=== PATIENT | female | born 1950 | race Asian ===

== ENCOUNTER 2017-01-25 14:35 | Inpatient (IN) | payer OTHER ==
[~2017-01-25] VITALS: Ht 162.6 cm; Wt 69.4 kg
[~2017-01-25 14:35] MED LIST: COZAAR100 MG PO; WELCHOL625 MG PO
--- NOTE | 2017-01-25 14:57 | NUR ---
PT BROUGHT TO ER VIA [facility]. PT PRESENTS TO ER WITH CHEST PAIN THAT BEGAN THIS AFTERNOON AFTER DOING HOME ACTIVITIES. PT STATES PT HAS BEEN FEELING "TIRED" LATELY. PT IN BED IN SEMI-FOWLERS. PT AAOX4, BREATHING EVEN AND UNLABORED. NO DISTRESS NOTED AT THIS TIME. AT BEDSIDE. CALL LIGHT PLACED WITHIN REACH. COMFORT MEASURES IN PLACE. PT WAITING TO BE SEEN BY ER MD.
--- NOTE | 2017-01-25 15:56 | NUR ---
DR SCHAFFER AT BEDSIDE FOR MSE.
--- NOTE | 2017-01-25 15:59 | NUR ---
XRAY AT BEDSIDE.
[2017-01-25 16:29] LABS: CALCIUM 8.8 mg/dL (8.5-10.1); CARBON DIOXIDE 30.4 mmol/L (21-32); CHLORIDE SERUM 109 mmol/L (98-107); CREATININE SERUM 0.7 mg/dL (0.6-1.0); GFR1 > 60 mL/min; GLUCOSE SERUM 110 mg/dL (74-106); SODIUM SERUM 144 mmol/L (136-145)
[2017-01-25 16:35] LABS: ALBUMIN 3.6 g/dL (3.4-5.0); ALKALINE PHOSPHATASE 59 U/L (46-116); ALT/SGPT 48 U/L (14-59); AST/SGOT 27 U/L (15-37); BILIRUBIN TOTAL 0.25 mg/dL (0.20-1.00); TOTAL PROTEIN, SERUM 7.1 g/dL (6.4-8.2)
--- NOTE | 2017-01-25 16:35 | NUR ---
PT IN BED TALKING TO AT BEDSIDE. COMFORT MEASURES IN PLACE, CALL LIGHT PLACED WITHIN REACH. NO DISTRESS NOTED AT THIS TIME
[2017-01-25 16:42] LABS: BASOPHIL % 0.4 % (0-2); PLATELET COUNT 163 x10^3mcL (130-400)
[2017-01-25 16:47] LABS: RED CELL DISTRIBUTION WIDTH 15.4 % (11.5-14.5)
--- NOTE | 2017-01-25 17:19 | NUR ---
DR SCHAFFER AT BEDSIDE DISCUSSING PLAN OF CARE.
[2017-01-25] MEDS ORDERED: LOSARTAN POTASS50 M1 PO (17:43)
[2017-01-25] MEDS ORDERED: ZOCOR10 MG PO (17:43)
--- NOTE | 2017-01-25 17:44 | NUR ---
DINNER TRAY BROUGHT TO BED. PT IN HIGH FOWLERS POSITION TO PREVENT ASPIRATION.
--- NOTE | 2017-01-25 18:22 | NUR ---
PT FINISHED FOOD TRAY. PT IN BED IN HIGH FOWLERS WATCHING TV. NO DISTRESS NOTED AT THIS TIME.
--- NOTE | 2017-01-25 19:08 | NUR ---
CHANGE OF SHIFT REPORT GIVEN TO DENISE DOMINGUEZ TO CONTINUE CARE.
--- NOTE | 2017-01-25 19:16 | NUR ---
REPORT RECEIVED FOR THIS PT FROM DENISE PRYOR
--- NOTE | 2017-01-25 19:42 | NUR ---
ASSISTED PT TO RR. AMBULATED WITH ASSISTANCE EASILY. RETURNED TO BED SAFELY.
--- NOTE | 2017-01-25 19:55 | NUR ---
PT DENIES ANY CP AT THIS TIME. AAO X4, DENIES ANY FURTHER COMPLAINTS OR NEEDS.
--- NOTE | 2017-01-25 20:12 | NUR ---
PT L EYE LID IS BECOMING SWOLLEN AND INFLAMED, SLIGHTLY RED. PT REPORTS SHE WOULD LIKE TO SPEAK WITH PHYSICIAN. RESIDENT PAGED.
--- NOTE | 2017-01-25 20:56 | NUR ---
REPOPRT GIVEN TO DENISE CASTELLON ON MST FOR THIS PT
--- NOTE | 2017-01-25 21:10 | NUR ---
RECEIVED PT FROM ED VIA [facility], CAME IN DUE TO CHEST PAIN. AAOX4. C/O HEADACHE. NO SOB NOTED. DENIES CHEST PAIN/PRESSURE AT THIS TIME, NSR. C/O MILD NAUSEA. NOTED PT HAS LEFT EYELID SWELLING, NO REDNESS NOTED, DENIES BLURRY VISION. IV SITE PATENT AND INTACT. SIDE RAILS UPX2. CALL LIGHT ON REACH. ENDORSED
[2017-01-25 21:15] VITALS: BP 119/53
[2017-01-25 21:22] VITALS: Ht 162.6 cm; Wt 69.4 kg
[2017-01-25 22:16] LABS: FREE T4 0.9 ng/dL (0.76-1.46); FREE THYROXINE INDEX 2.9 ug/dL (1.4-4.5); T4(THYROXINE) 8.3 ug/dL (4.7-13.3)
[2017-01-25 22:17] LABS: CHOLESTEROL/HDL RATIO 3.9; MAGNESIUM 2.2 mg/dL (1.8-2.4); PHOSPHOROUS 3.5 mg/dL (2.5-4.9); T3 TOTAL 1.09 ng/mL
[2017-01-26 05:19] VITALS: BP 110/60
--- NOTE | 2017-01-26 06:20 | NUR ---
PT HAD A RESTING NIGHT NO CHANGE IN CONDITION AT THIS TIME,WILL CONTINUE TO MONITOR.
--- NOTE | 2017-01-26 07:25 | NUR ---
RECEIVED PATIENT SITTING UP IN BED A/O X4, CLEAR SPEECH. TELE # [address], DENIES CHEST PAIN. BREATHING EVEN UNLABBORED, NO DISTRESS NOTED. SKIN IS WARM CDI WITH IV TO LAC INTACT INFUSING NS AT 85 ML/HR FREE FROM REDNESS AND INFILTRATION. PATIENT IS CALM AND COOPERATIVE WITH CARE. INSTRUCTED TO CALL FOR ASSISTANCE IF NEEDED. CALL LIGHT WITHIN REACH, BED IN LOW POSITION. WILL MONITOR.
--- NOTE | 2017-01-26 08:48 | NUR ---
ROUNDS MADE- DR. ANGULO, RESIDENT TEAM, CHARGE NURSE AND PRIMARY NURSE AT BEDSIDE. POC REVIEWED WITH PATIENT- PATIENT CAME IN FOR CHEST PAIN, WILL BE SEEN BY SURGICAL TECHNOLOGIST. PATIENT ALSO C/O MOORE AND LEFT EYELID SWELLING, PATIENT WITH HAVE CT HEAD DONE TODAY. ALL QUESTIONS AND CONCERNS ADDRESSED. WILL MONITOR.
--- NOTE | 2017-01-26 10:00 | NUR ---
PATIENT TAKEN DOWN TO CT SCAN. ENGRAVER APPRENTICE DECORATIVE AWARE.
[2017-01-26 10:08] VITALS: BP 102/54
--- NOTE | 2017-01-26 10:09 | NUR ---
echocardiogram pending patient not in room
--- NOTE | 2017-01-26 10:17 | NUR ---
PATIENT BACK FROM CT SCAN, MANUFACTURING AREA MANAGER AWARE. PATIENT REMAINS IN STABLE CONDITION. IVF RESUMED. WILL MONITOR.
[2017-01-26 11:50] LABS: UA SPECIFIC GRAVITY <=1.005 (1.005-1.035); microscopic required? YES; urine erythrocyte TRACE (NEGATIVE)
--- NOTE | 2017-01-26 12:58 | NUR ---
echocardiogram pending -patient with tray
--- NOTE | 2017-01-26 13:54 | NUR ---
PATIENT SITTING UP AT EDGE OF BED, REMAINS IN STABLE CONDITION NO DISTRESS NOTED. SAFETY PRECAUTIONS IN PLACE. WILL MONITOR.
[2017-01-26 15:16] VITALS: BP 121/61
[2017-01-26] MEDS ORDERED: ARTIFICIAL TEAR15 M2 OS (16:05)
[2017-01-26] MEDS ORDERED: PREDNISONE10 MG PO (17:02)
[2017-01-26] MEDS ORDERED: LOSARTAN POTASS50 M1 PO (17:21)
[2017-01-26] MEDS ORDERED: ZOCOR10 MG PO (17:21)
[2017-01-26 17:30] VITALS: BP 121/61
--- NOTE | 2017-01-26 17:30 | NUR ---
PATIENT SITTING UP IN BED EATING DINNER, NO DISTRESS NOTED. PATIENT TO BE DISCHARGED HOME PER MD ORDER. WILL FOLLOW UP WITH DISCHARGE ORDERS. FAMILY MEMBER AT BEDSIDE.
--- NOTE | 2017-01-26 18:05 | NUR ---
PATIENT TO BE DISCHARGE HOME PER MD ORDER. DISCHARGE INSTRUCTIONS, PRESCRIPTION, BELONGINGS LIST AND EDUCATION GIVEN TO PATIENT. PATIENT VERBALIZED UNDERSTANDING TO MAKE FOLLOW UP APPOINTMENT WITH PCP WITHIN 3-5 BUSINESS DAYS AFTER DISCHARGE. ALL QUESTIONS AND CONCERNS ADDRESSED. IV TO LFA REMOVED, CATH INTACT, ID BANDS REMOVED, TELE MONITOR REMOVED. PATIENT IN STABEL CONDITION, ASSISTED DOWN TO LOBBY VIA WHEELCHAIR ACCOMPANIED BY NURSE AID AND . ALL PERSONAL BELONGINGS SENT HOME WITH PATIENT.
== END 2017-01-26 18:05 | disposition home or self-care (01) | DRG 311 ==
LOC: ED 14:35 → DU 17:29
PROVIDERS: Emergency Medicine; ADMIT Family Medicine
DX: I20.9 Angina pectoris, unspecified (principal); N17.0 Acute kidney failure with tubular necrosis; E87.8 Other disorders of electrolyte and fluid balance, not elsewhere classified; I10 Essential (primary) hypertension; E78.1 Pure hyperglyceridemia; D50.9 Iron deficiency anemia, unspecified; Z53.29 Procedure and treatment not carried out because of patient's decision for other reasons; Z68.27 Body mass index [BMI] 27.0-27.9, adult; Z86.73 Personal history of transient ischemic attack (TIA), and cerebral infarction without residual deficits; Z79.899 Other long term (current) drug therapy; Z80.9 Family history of malignant neoplasm, unspecified
CPT/HCPCS: 83880; 84439; J7030; Q0092; Q9967